=== PATIENT | female | born 1980 | race Two or more races ===

== ENCOUNTER 2024-11-28 16:53 | Inpatient (IN) | payer MEDICAID, SELFPAY ==
[2024-11-28] VITALS (15 sets, daily range): BP systolic 79–120; BP diastolic 56–65; PULSE 62–95; RESP 14–24; TEMP 36.8; O2SAT 72–93
--- NOTE | 2024-11-28 17:34 | EKG_ITS ---
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
--- NOTE | 2024-11-28 17:38 | PD.EDSOB ---
ED SOB =RME/HPI General Chief Complaint: Shortness of Breath/Dyspnea Stated Complaint: SHORTNESS OF BREATH Time Seen by Provider: 11/28/24 17:30 Arrival date/time: 11/28/24 16:53 RME / HPI RME / HPI Narrative: 44-year-old female patient with significant history of congenital heart disease,/intracardiac shunting, Down syndrome, was brought in by EMS for evaluation regarding shortness of breath. Patient has been having worsening cough, shortness of breath since yesterday, + fevers noted. Related Data Home Medications ?Medication ?Instructions ?Recorded ?Confirmed montelukast 10 mg tablet 10 mg ORAL HS ASTHMA ##0 12/14/07 02/04/24 (Singulair) Previous Rx's ?Medication ?Instructions ?Recorded apixaban 5 mg tablet (Eliquis) 5 mg PO BID #60 tabs 02/03/24 acetaminophen 500 mg capsule 1,000 mg (2 x 500 mg) PO Q6H PRN 03/27/24 fever or pain #30 caps Allergies Allergy/AdvReac Type Severity Reaction Status Date / Time Penicillins Allergy Verified 11/28/24 18:00 Review of Systems Review of Systems Narrative Review of Systems: Review of system reviewed and within normal limits except mentioned in HPI ED Exam Narrative Physical exam: VITAL SIGNS: Reviewed. GENERAL APPEARANCE: Alert and interactive, follows commands, no acute distress, Down syndrome HEAD AND FACE: Non-traumatic. ENT: PERRL, pink conjunctivitis, eyelid no trauma, Mucous membrane moist. NECK: Supple, nontender, no nuchal rigidity. CHEST: No tenderness, no crepitus, no paradoxical movement, no retractions. LUNGS: Clear, well ventilated, symmetric, no rales, no wheezing, no ronchi, no stridor, decreased breath sounds bilaterally. HEART: Regular rate, regular rhythm, no murmur, no gallops. ABDOMEN: Soft, positive bowel sounds, nondistended, no guarding, nontender, no rebound, no masses, RECTAL: Deferred. GENITAL: Deferred. NEUROLOGICAL: Gross motor function intact sensory function intact, Appropriate for age. MUSCULOSKELETAL: low back nontender, full range of motion. EXTREMITIES: Nontender, full range of motion. SKIN: Color pink, dry, no rash, no lacerations, no abrasions, no contusions. LYMPHATICS: Deferred. Course Quality Measures none Orders Category Date Time Status Bedside COVID-19 Antigen Test NOW Care 11/28/24 17:34 Active Bedside Influenza A&B Antigen Test NOW Care 11/28/24 17:34 Completed COVID-19 Screening Questionnaire NOW Care 11/28/24 21:14 Active Decision to Admit X1 Care 11/28/24 21:14 Active EKG (ED ONLY) *Do not use* NOW Care 11/28/24 17:34 Completed EKG (ED Only) Stat Exams 11/28/24 17:34 Draft XR chest 1V Stat Exams 11/28/24 18:40 Completed B-Type Natriuretic Peptide Stat Lab 11/28/24 19:30 Completed Blood Culture (Lab) Stat Lab 11/28/24 19:30 Received C-Reactive Protein Stat Lab 11/28/24 19:30 Completed CBC Stat Lab 11/28/24 19:30 Completed Comprehensive Metabolic Panel Stat Lab 11/28/24 19:30 Completed Lactate (Lactic Acid) Stat Lab 11/28/24 19:21 Results Partial Thromboplastin Time Stat Lab 11/28/24 19:30 Completed Procalcitonin Stat Lab 11/28/24 19:30 Completed Prothrombin Time with INR Stat Lab 11/28/24 19:30 Completed Troponin I Stat Lab 11/28/24 19:30 Completed ALBUTEROL RT 0.5ml [Proventil Rt 0.5ml] Med 11/28/24 17:47 Discontinued 2.5 mg INH X1 ONE Albuterol/Ipratr Rt Danica [Duoneb Rt Danica] Med 11/28/24 17:47 Discontinued 3 ml INH X1 ONE Doxycycline Inj [Vibramycin Inj] 100 mg Med 11/28/24 20:30 Active Sodium Chloride 0.9% 250 ml [Ns] 250 ml IV X1 Oseltamivir [Tamiflu] Med 11/28/24 21:10 Discontinued 30 mg PO X1 ONE Sodium Chloride 0.9% 1000 ml [Ns] 1,000 ml Med 11/28/24 20:31 Active IV 999 mls/hr Sodium Chloride Rt Danica 0.9% [NS Rt Danica 0.9%] Med 11/28/24 17:47 Active 3 ml INH PRN PRN cefTRIAXone [Rocephin] 1,000 mg Med 11/28/24 21:14 Active Sodium Chloride 0.9% (P) [Ns 0.9% (P)] 50 ml IV QDAY cefTRIAXone/D5w 1gm IV premix [Rocephin/D5w 1gm IV Med 11/28/24 20:32 Discontinued premix] 50 ml IV X1 Oxygen Delivery NOW RT 11/28/24 21:07 Active Vital Signs Vital signs: Vital Signs Pulse Rate 93 11/28/24 17:52 Respiratory Rate 15 11/28/24 17:52 Pulse Oximetry (%) 75 L 11/28/24 17:52 Oxygen Flow Rate 15 11/28/24 17:52 Shortness of Breath / Dyspnea [facility] Narrative [facility] Narrative:: 44-year-old female patient with significant history of congenital heart disease,/intracardiac shunting, Down syndrome, was brought in by EMS for evaluation regarding shortness of breath. Patient has been having worsening cough, shortness of breath since yesterday, + fevers noted. Patient was placed on high flow right away, currently satting 89% on 30 L. Patient is not tolerating 40 L. Patient tested positive for influenza. Was given 30 mg of Tamiflu due to creatinine that is elevated. Patient was also given IV ceftriaxone and IV doxycycline. Chest x-ray is significant for pneumonia. There is of the labs unremarkable Plan of care discussed with the family and agrees to be admitted Case discussed with hospitalist who admitted the patient. Patient data External records reviewed:: None Clinical information provided by:: family Social determinants that could affect healthcare access:: none Patient has the following chronic illnesses:: Congenital heart disease with intracardiac shunting, pulmonary hypertension Down syndrome How is presenting disease/condition affected by chronic disease/condition?: exacerbated by Evaluation data The following diagnostics were reviewed and interpreted by me:: lab results, radiology exam(s) and EKG tracing(s) Lab and/or radiology exams considered but not ordered:: None Interpretation Summary: EKG showed sinus rhythm, ventricular rate of 83 bpm, no ST segment elevation or depression noted the rest of the imaging and laboratory workup see [facility] Medications / Prescriptions Medications or Prescriptions considered but not ordered:: None Medication administrations:: Medication Administration History Doxycycline Hyclate 100 mg/ (Sodium Chloride) 250 mls @ 125 mls/hr IV X1 ONE Stop: 11/28/24 22:29 Last Admin: 11/28/24 20:44 Dose: 125 mls/hr Documented By: MARIA INES Sodium Chloride (Ns) 1,000 mls @ 999 mls/hr IV .Q1H1M ONE Stop: 11/28/24 21:31 Last Admin: 11/28/24 20:43 Dose: 999 mls/hr Documented By: MARIA INES Ceftriaxone Sodium 1,000 mg/ (Sodium Chloride) 50 mls @ 100 mls/hr IV QDAY ONE Stop: 11/28/24 21:43 Sodium Chloride (Sodium Chloride Rt Danica 0.9% 3 Ml Nebu) 3 ml INH PRN PRN PRN Reason: SOLN Stop: 12/28/24 17:46 Discontinued Medications Albuterol (Albuterol Rt 2.5 Mg/0.5 Ml Nebu) 2.5 mg INH X1 ONE Stop: 11/28/24 17:48 Albuterol/Ipratropium (Albuterol/Ipratropium (Duoneb) Rt Danica 3 Ml Nebu) 3 ml INH X1 ONE Stop: 11/28/24 17:48 Last Admin: 11/28/24 17:50 Dose: 3 ml Documented By: PARUL Ceftriaxone Sodium/Dextrose (Rocephin/D5w 1gm Iv Premix) 50 mls @ 100 mls/hr IV X1 ONE Stop: 11/28/24 21:01 Oseltamivir Phosphate (Oseltamivir 30 Mg Capsule) 30 mg PO X1 ONE Stop: 11/28/24 21:11 Doxycycline IV, Zithromax IV, and IV fluids for hydration. Consultations Consultation(s) initiated? (list below): No Diagnosis Shortness of Breath Differential Diagnosis: congestive heart failure and community acquired pneumonia Most likely diagnosis given after review of the tests above:: Influenza, pneumonia, hypoxia, congenital heart disease with intracardiac shunting Admission Indicated Admission indicated?: indicated Explain why admission is indicated or not indicated:: Patient is to be admitted for further management. Admission Request Was there a request for admission?: Yes Admission Attestation Admission request attestation: Discussed case with Hospitalist service regarding admission. Discussed patients ED course, exam findings, labs, and radiology results. The Hospitalist [agrees,] to accept the patient for admission. Disposition Plan Disposition Plan: Admit Discharge Plan Plan Patient Disposition: Admit Acute Care w/in Hospital Disposition Comment: Stable Prescriptions/Referrals Prescriptions/Med Rec: No Action montelukast [Singulair] 10 MG tablet 10 mg ORAL HS Qty: 0 Patient Comments: TAKE 1 TABLET ORALLY EVERY DAY Eliquis 5 mg tablet 5 mg PO BID Qty: 60 2RF Rx Instructions: Start on 02/06/2024 acetaminophen 500 mg capsule 1,000 mg PO Q6H PRN (Reason: fever or pain) Qty: 30 0RF Problem List Clinical Impression: Pneumonia, Influenza, Congenital heart disease with intracardiac shunting Patient/Caregiver Discharge Instructions Print Language: Turkmen Stand Alone Forms: Irma Award Info., Patient Portal Info Letter
[2024-11-28] MEDS: ALBUTEROL/IPRATROPIUM (Duoneb) RT SOL 3 ML NEBU INH ×2 (17:50→23:20)
--- NOTE | 2024-11-28 18:02 | PC.NURSE ---
PATIENT'S MOTHER JESSICA JACKSON REFUSING HIGH FLOW OXYGEN AND ABG DRAW, RT AND [employer]ER SHAKIREA EXPLAINED IMPROTANCE OF HIGH FLOW OXYGEN, MOTHER CONTINUES TO REFUSE. MOTHER STATES PATIENT IS COMFORT CARE AND DO NOT WANT INTUBATION OR CPR. MOTHER STATES IV, LABS MEDICATIONS, X-RAY ARE OKAY. MOTHER STATES SHE HAS TAKEN CARE OF PATIENT FOR 44 YEARS AND PATIENT'S NORMAL OXYGEN SATURATION LEVEL IS 82-85% ON 10L VIA MASK WITH A MAX OF 12L. MOTHER CONTINUED TO REFUSE HIGH- FLOW AND ABG.
--- NOTE | 2024-11-28 18:15 | PC.NURSE ---
BROTHER SLADE JACKSON AT BEDSIDE AND WAS INFORMED AT PATIENT'S O2 SATURATION IS CURRENTLY 73% ON 10L VIA MASK WITH IS BELOW THE NORMAL STATED BY PATIENT'S MOTHER JESSICA JACKSON. HIGH FLOW WAS EXPLAINED TO FAMILY AGAIN AND FAMILY AGREED TO HIGH FLOW OXYGEN AT THIS TIME. THEY STATED THAT HIGH FLOW OXYGEN IS OKAY UNTIL PATIENT'S OXYGEN LEVEL RETURN TO PATIENT'S NORMAL LEVELS.
--- NOTE | 2024-11-28 18:40 | XR_ITS ---
Examination: AP chest single view Technique one AP portable upright chest single view Exam date and time: November 28, 2024 1837 hrs. Comparison March 27, 2024 Indications: Coughing difficulty breathing today. Findings: Left base retrocardiac pneumonia Mild prominence left ventricle Prominent central pulmonary arteries No pulmonary edema Moderate osteopenia Impression: Left base pneumonia Suspicious for pulmonary artery hypertension
[2024-11-28 19:36] LABS: Lactate (Lactic Acid) 2.2 mMol/L (0.4-2.0)
[2024-11-28 19:58] LABS: Basophils % (Auto) 0 % (0-2.5); Eosinophils % (Auto) 0 % (0-10); Hematocrit 55.4 % (36.0-46.0); Hemoglobin 18.4 g/dL (12.0-16.0); Immature Granulocytes % (Auto) 1 % (0-0); Immature Granulocytes Auto 0.03 Thou/mm3 (0.00-0.00); Lymphocytes # (Auto) 0.7 Thou/mm3 (1.0-4.8); Lymphocytes % (Auto) 15 % (10-50); Mean Corpuscular HGB Conc 33.2 g/dl (31.0-37.0); Mean Corpuscular Hemoglobin 26.9 pg (25.0-35.0); Mean Corpuscular Volume 81 fL (80-100); Monocytes # (Auto) 0.8 Thou/mm3 (0.0-0.8); Monocytes % (Auto) 17 % (0-12); Neutrophils # (Auto) 3.1 Thou/mm3 (1.8-7.7); Neutrophils % (Auto) 68 % (37-80); Nucleated Red Blood Cell % 0 /100 WBC (0); RDW Standard Deviation 51.8 fL (36.4-46.3); Red Blood Count 6.83 Miln/mm3 (4.00-5.20); White Blood Count 4.6 Thou/mm3 (3.6-11.0)
[2024-11-28 20:07] LABS: Platelet Count 53 Thou/mm3 (140-440)
[2024-11-28 20:08] LABS: Slide Review Platelets confirmed
[2024-11-28 20:10] LABS: INR 1.4 (0.9-1.3); Prothrombin Time 14.8 Seconds (9.0-12.2)
--- NOTE | 2024-11-28 20:33 | PC.NURSE ---
BP systolic 85. provider aware. fluids ordered.
[2024-11-28 20:34] LABS: Alanine Aminotransferase 11 U/L (10-49); Albumin, Serum 3.7 gm/dL (3.5-5.0); Albumin/Globulin Ratio 1.1 (1.2-2.2); Alkaline Phosphatase 108 U/L (46-116); Anion Gap 13 (7-16); Aspartate Amino Transferase 32 U/L (0-34); BUN/Creatinine Ratio 12 Ratio (12-20); Bilirubin,Total 0.3 mg/dL (0.3-1.2); Blood Urea Nitrogen 19 mg/dL (9-23); Calcium 9.3 mg/dL (8.3-10.6); Calcium (Corrected) 9.5 mg/dL (8.5-10.1); Carbon Dioxide 19.8 mMol/L (20.0-31.0); Chloride 111 mMol/L (98-107); Creatinine (Component) 1.6 mg/dL (0.6-1.3); Globulin 3.5 gm/dL (2.3-3.5); Glucose 100 mg/dL (74-106); Osmolality,Calculated 289 (275-295); Potassium 4.2 mMol/L (3.4-5.1); Procalcitonin 0.18 ng/ml (0.0-0.49); Sodium 144 mMol/L (136-145); Total Protein 7.2 gm/dL (5.7-8.2); Troponin I < 0.020 ng/mL (0.0-0.045); eGFR 41 See Note
[2024-11-28] MEDS: SODIUM CHLORIDE 0.9% 1000 ML 1,000 ML 999 ML IV (20:43)
[2024-11-28] MEDS: DOXYCYCLINE INJ 100 MG in SODIUM CHLORIDE 0.9% 250 ML 250 ML 125 MG IV (20:44)
[2024-11-28 21:03] LABS: B-Type Natriuretic Peptide 23 pg/mL (0-100)
[2024-11-28 21:13] LABS: C-Reactive Protein 7.1 mg/dL (0.0-0.9)
--- NOTE | 2024-11-28 22:13 | PD.RESHP ---
Documentation for date of: 11/28/24 HPI History of Present Illness Chief complaint: Cough, Shortness of Breath History of present illness: Ms. Silva is a 44-year-old female with past medical history of Down syndrome, congenital heart disease with murmur and 2 defects, status post surgical repair of 1 defect at age 10, seasonal allergies, asthma, hypothyroidism and chronic hypoxemia with baseline home oxygen O2 requirement of 5 L via nasal cannula, patient SpO2 85-89 at baseline who presented to [facility] emergency department on 11/28/2024 with a chief complaint of cough and shortness of breath since yesterday. Patient's mother at bedside provided most of the history, per family patient symptoms started yesterday reported increased cough, shortness of breath with increased oxygen requirement and fever since yesterday. Reported the cough to be nonproductive, with minimal sputum production and elevated temperature doctor at home so she decided to bring patient to the emergency department for further evaluation. In the ED patient was found to be positive for influenza A, also suspicion of left base pneumonia on chest x-ray with increased oxygen requirement from baseline, currently patient saturating 90s on high flow nasal cannula. Patient is alert and oriented, engages in conversation, there is generalized abdominal tenderness on examination, complains of constipation. Otherwise patient has no other complaints. ED Course: ED Vitals: On presentation in ED BP 89/56, P93, RR 15, temp 98.3, O2 sat 75 on oxy mask 15 L ED Labs: In ED labs significant for RBC 6.83, hemoglobin 18.4, hematocrit 55.4, platelet 53,000, PT 14.8, INR 1.4, APTT 45, chloride 111, venous CO2 19.8, creatinine 1.6, GFR 41, lactate 2.2 CRP 7.1 ED Imaging:EKG shows sinus rhythm, QTc 444 and chest x-ray shows left base pneumonia, suspicion of pulmonary artery hypertension ED Treatment:Patient was given DuoNeb breathing treatment, 1 L NS bolus, doxycycline and ceftriaxone x 1 in ED Review of Systems Review of Systems Narrative Review of Systems: ROS: -CONSTITUTIONAL: Denies weight loss, positive for fever and chills. -HEENT: Denies changes in vision and hearing. -RESPIRATORY: Positive for SOB and cough. -CV: Denies palpitations and Chest Pain. -GI: Denies abdominal pain, nausea, vomiting and diarrhea. Positive for constipation. -: Denies dysuria and urinary frequency. -MSK: Denies myalgia and joint pain. -SKIN: Denies rash and pruritus. -NEUROLOGICAL: Denies headache and syncope. -PSYCHIATRIC: Denies recent changes in mood. Denies anxiety and depression. Past Medical History Past Medical History Comments PMH COMMENT: PMH: Positive for Down syndrome, congenital heart disease with murmur and 2 defects, status post surgical repair of 1 defect at age 10, seasonal allergies, asthma, hypothyroidism and chronic hypoxemia with baseline home oxygen O2 requirement of 5 L via nasal cannula, patient SpO2 85-89 at baseline PSHx: Surgical repair of cardiac defect due to congenital heart disease Allergies: Penicillin (skin lesions at fingertips) Social history: -Smoking: Denies -Alcohol Use: Denies -Illicit Drug Use: Denies Family History: No pertinent family history Exam Vital Signs Temp Pulse Resp BP Pulse Ox O2 Del Method O2 Flow Rate 98.3 F 65 24 H 98/61 92 L High Flow Nasal Cannula 30 11/28/24 18:08 11/28/24 21:23 11/28/24 21:23 11/28/24 21:23 11/28/24 21:23 11/28/24 21:23 11/28/24 21:23 FiO2 100 11/28/24 21:23 Narrative Exam Physical Exam General: Awake and in no acute distress. Conversational and non-toxic appearing. HEENT: Down's facies noted, atraumatic, mucous membranes dry, cracked lips noted. Heart: Regular rate and rhythm, systolic murmur appreciated. Lungs: Coarse crackles heard bilaterally, no wheezing. Abdomen: Soft, nondistended, generalized tenderness noted, positive bowel sounds. ?No guarding or rebound tenderness. Neurologic: Alert and oriented x3, no gross neurological deficit, and patient able to move all 4 extremities. Extremities: No edema. Skin: Petechia noted all over skin, on chest, face and legs Results: Labs 11/29/24 04:15 11/29/24 04:15 Labs: Short CBC 11/28/24 Range/Units 19:30 WBC 4.6 (3.6-11.0) Thou/mm3 Hgb 18.4 H (12.0-16.0) g/dL Hct 55.4 H (36.0-46.0) % Plt Count 53 L (140-440) Thou/mm3 BMP 11/28/24 19:30 Sodium 144 Potassium 4.2 Chloride 111 H Carbon Dioxide 19.8 L BUN 19 Creatinine 1.6 H Glucose 100 Calcium 9.3 Cardiac Enzymes 11/28/24 Range/Units 19:30 Troponin I < 0.020 (0.0-0.045) ng/mL Liver Function 11/28/24 Range/Units 19:30 Total Bilirubin 0.3 (0.3-1.2) mg/dL AST 32 (0-34) U/L ALT 11 (10-49) U/L Alkaline Phosphatase 108 (46-116) U/L Albumin 3.7 (3.5-5.0) gm/dL Quality Measures Quality Measures none Medications Home Medications and Allergies Home Medications ?Medication ?Instructions ?Recorded ?Confirmed ?Type montelukast 10 mg tablet 10 mg ORAL HS ASTHMA ##0 12/14/07 02/04/24 History (Singulair) Allergies Allergy/AdvReac Type Severity Reaction Status Date / Time Penicillins Allergy Verified 11/28/24 18:00 Visit Medications Acetaminophen (Acetaminophen 325 Mg Tablet) 650 mg PO Q6H PRN PRN Reason: Mild Pain (1-3 & Fever >101.5 Stop: 12/28/24 21:49 Acetylcysteine (Acetylcysteine Rt Danica 10% 4 Ml Nebu) 4 ml INH Q4HRRT PRN PRN Reason: COUGH OR CONGESTION Stop: 12/28/24 22:59 Albuterol/Ipratropium (Albuterol/Ipratropium (Duoneb) Rt Danica 3 Ml Nebu) 3 ml INH Q4HRRT [facility] Stop: 12/28/24 22:59 Apixaban (Apixaban 2.5 Mg Tablet) 5 mg PO BID [facility] Stop: 12/28/24 22:14 Doxycycline Hyclate 100 mg/ (Sodium Chloride) 250 mls @ 125 mls/hr IV X1 ONE Stop: 11/28/24 22:29 Last Admin: 11/28/24 20:44 Dose: 125 mls/hr Lactated Ringer's (Lactated Ringers) 1,000 mls @ 70 mls/hr IV .[id number] [facility] Stop: 11/29/24 12:17 Ceftriaxone Sodium/Dextrose (Rocephin/D5w 1gm Iv Premix) 50 mls @ 100 mls/hr IV QDAY [facility] Stop: 12/05/24 21:53 Doxycycline Hyclate 100 mg/ (Sodium Chloride) 100 mls @ 100 mls/hr IV BID [facility] Stop: 12/06/24 08:59 Levothyroxine Sodium (Levothyroxine Sodium 25 Mcg Tablet) 50 mcg PO ACBR [facility] Stop: 12/29/24 05:59 Montelukast Sodium (Montelukast Sodium 10 Mg Tablet) 10 mg PO HS [facility] Stop: 12/29/24 20:59 Ondansetron HCl (Ondansetron Inj 2 Mg/Ml Inj 2 Ml) 4 mg IV Q6H PRN; Protocol PRN Reason: NAUSEA OR VOMITING Stop: 12/28/24 21:49 Oseltamivir Phosphate (Oseltamivir 75 Mg Capsule) 75 mg PO BID [facility] Stop: 12/03/24 21:59 Sennosides (Senna Tablet) 2 tab PO HS [facility]; Protocol Stop: 12/29/24 20:59 Sennosides (Senna Tablet) 1 tab PO X1 ONE; Protocol Stop: 11/28/24 22:11 Sodium Chloride (Sodium Chloride Rt Danica 0.9% 3 Ml Nebu) 3 ml INH PRN PRN PRN Reason: SOLN Stop: 12/28/24 17:46 Discontinued Medications Acetylcysteine (Acetylcysteine Rt Danica 10% 4 Ml Nebu) 4 ml INH Q4HRRT [facility] Stop: 12/28/24 22:59 Albuterol (Albuterol Rt 2.5 Mg/0.5 Ml Nebu) 2.5 mg INH X1 ONE Stop: 11/28/24 17:48 Albuterol/Ipratropium (Albuterol/Ipratropium (Duoneb) Rt Danica 3 Ml Nebu) 3 ml INH X1 ONE Stop: 11/28/24 17:48 Last Admin: 11/28/24 17:50 Dose: 3 ml Sodium Chloride (Ns) 1,000 mls @ 999 mls/hr IV .Q1H1M ONE Stop: 11/28/24 21:31 Last Admin: 11/28/24 20:43 Dose: 999 mls/hr Ceftriaxone Sodium/Dextrose (Rocephin/D5w 1gm Iv Premix) 50 mls @ 100 mls/hr IV X1 ONE Stop: 11/28/24 21:01 Ceftriaxone Sodium 1,000 mg/ (Sodium Chloride) 50 mls @ 100 mls/hr IV QDAY ONE Stop: 11/28/24 21:43 Oseltamivir Phosphate (Oseltamivir 30 Mg Capsule) 30 mg PO X1 ONE Stop: 11/28/24 21:11 Sodium Chloride (Sodium Chloride Rt 10% 15 Ml Nebu) 5 ml INH X1 ONE Stop: 11/28/24 21:51 Assessment & Plan Plan Assessment and Plan: Summary: Ms. Silva is a 44-year-old female with past medical history of Down syndrome, congenital heart disease with murmur and 2 defects, status post surgical repair of 1 defect at age 10, seasonal allergies, asthma, hypothyroidism and chronic hypoxemia with baseline home oxygen O2 requirement of 5 L via nasal cannula, patient SpO2 85-89 at baseline who presented to [facility] emergency department on 11/28/2024 with a chief complaint of cough and shortness of breath since yesterday. Patient admitted for further management of acute on chronic hypoxic respiratory failure secondary to influenza A and pneumonia. # Acute on chronic hypoxic respiratory failure # Left lung basilar pneumonia, community-acquired # Influenza A+ # Asthma by history # Lactic acidosis Patient complained of recent cough, shortness of breath, fever and chills since yesterday, had increased oxygen requirement at home, patient has congenital heart disease and is chronically hypoxemic, maintains SpO2 85-89 at baseline at home per mother, does also have history of asthma, reports taking montelukast daily and using levalbuterol inhaler as needed for allergies and asthma. In ED patient SpO2 75 on 15 L via oxy mask on presentation, bedside influenza A positive in ED, chest x-ray significant for suspected left base pneumonia. Coarse crackles heard bilaterally on exam. Has increased oxygen requirement, requiring high flow nasal cannula 30 L, SpO2 in low 90s Patient was given 1 L NS bolus, breathing treatment x 1, ceftriaxone and doxycycline IV in ED. Plan: -Continue ceftriaxone and doxycycline (11/28- -started on Tamiflu 30 mg twice daily (11/28- -DuoNeb every 4 hours, Mucomyst as needed every 4 hours -Guaifenesin as needed for cough -Follow sputum culture, blood culture -Follow lactate -Follow MRSA nasal screen -Supplemental oxygen as needed, goal SpO2 88-90 #Acute kidney injury Patient's baseline GFR Baseline BUN 14, creatinine 1.0, GFR more than 60. On presentation BUN 19, creatinine 1.6, GFR 41 Plan: -Patient was given 1 L bolus in ED, started on maintenance fluid LR 1 L -Avoid nephrotoxic agents -Renally dose medication -Follow renal panel in a.m. #Polycythemia Patient has history of polycythemia, hemoglobin 18.4 on admission, patient has chronic hypoxemia, Miky mutation negative per chart review Plan: -Follow CBC in a.m. #Thrombocytopenia #Petechiae Patient's platelets 53,000 on presentation, petechiae noted on skin. Patient is on Eliquis indefinitely per mother by PCP because of polycythemia Plan: -Continue Eliquis 5 mg p.o. twice daily -Follow platelets in a.m. -No signs of active bleeding currently #Constipation Abdominal tenderness noted on exam, per mother patient constipated Plan: -Senna 2 tablets nightly -Consider starting on MiraLAX in a.m. #Hypothyroidism by history Patient on levothyroxine 50 mcg at home Plan: -Continue home dose levothyroxine -Follow TSH in a.m. #Congenital heart disease #Down syndrome Echo from 2023 shows: Ventricular septal defect ( > 1 cm, infundibular / membranous) with overriding aorta noted with blood flow from the right ventricle into the aorta. Enlarged RV with right ventricular hypertrophy noted. Right ventricular free wall is 0.8-0.9 cm. Echo appears classic for Tetralogy of Fallot but pulmonary stenosis not identified. Small LV with normal LV function at 55 to 60%. Mildly dilated RV with normal function and RV hypertrophy, mild TR. Dilated RA. Trace MR and PI. Aortic regurgitation not evaluated. DVT prophylaxis: Eliquis GI prophylaxis: Not indicated Diet: Regular Lines: Peripheral IV Code status: DNR/DNI Case discussed with Attending Dr. Garcia. Rohan Ozuna PGY1 Disclaimer: This note was dictated by speech recognition. Minor errors in digital media strategist may be present due to voice recognition software. Attending Provider Attestation/Addendum 44-year-old female with Down syndrome, congenital heart defect/VSD status postrepair, hypothyroidism, chronic hypoxic respiratory failure with secondary polycythemia was admitted for influenza A pneumonia. Patient has acute respiratory failure, CHAKA possible early sepsis. Patient was started on IV Rocephin and doxycycline. She was given Tamiflu.
[2024-11-28] MEDS: cefTRIAXone 1,000 MG in SODIUM CHLORIDE 0.9% (P) 50 ML 100 MG IV (22:29)
[2024-11-28 22:45] LABS: Reflex Lactate? Y
[2024-11-28] MEDS: RINGERS LACTATED 1000 ML 1,000 ML 70 ML IV (23:10)
[2024-11-28] MEDS: SODIUM CHLORIDE RT 10% 15 ML NEBU 5 ML INH (23:19)
[2024-11-28] MEDS: APIXABAN 2.5 MG TABLET 5 MG PO (23:57)
[2024-11-28] MEDS: OSELTAMIVIR 30 MG CAPSULE PO (23:58)
[2024-11-29] VITALS (17 sets, daily range): BP systolic 90–152; BP diastolic 54–86; PULSE 0–92; RESP 12–26; TEMP 36.2–37.5; O2SAT 77–98
[2024-11-29 00:37] LABS: Procalcitonin 0.14 ng/ml (0.0-0.49)
[2024-11-29] MEDS: ALBUTEROL/IPRATROPIUM (Duoneb) RT SOL 3 ML NEBU INH ×6 (02:00→23:01)
[2024-11-29 03:26] LABS: Respiratory Syncytial Virus Ag Negative (Negative)
[2024-11-29 03:47] LABS: Collection Type, Urine Clean Catch; RBC,Urine 0 /hpf (0-3); Squamous Epithelial Cell,Urine 0 /hpf (0-5); WBC,Urine 0 /hpf (0-5)
[2024-11-29 04:07] LABS: Bilirubin,Urine Negative (Negative); Blood,Urine Negative (Negative); Clarity,Urine Clear (Clear/Hazy); Color,Urine Lt-Yellow (Lt Yel-Yel); Glucose, Urine Negative (Negative); Ketones,Urine Negative (Negative); Leukocyte Esterase,Urine Negative (Negative); Nitrite,Urine Negative (Negative); Protein,Urine Negative (Neg - Trace); Specific Gravity,Urine 1.012 (1.001-1.035); Urobilinogen,Urine Negative mg/dL (0.0-1.0)
[2024-11-29 04:28] LABS: Basophils % (Auto) 1 % (0-2.5); Eosinophils % (Auto) 0 % (0-10); Hematocrit 52.6 % (36.0-46.0); Hemoglobin 17.4 g/dL (12.0-16.0); Immature Granulocytes % (Auto) 1 % (0-0); Immature Granulocytes Auto 0.02 Thou/mm3 (0.00-0.00); Lymphocytes # (Auto) 0.7 Thou/mm3 (1.0-4.8); Lymphocytes % (Auto) 19 % (10-50); Mean Corpuscular HGB Conc 33.1 g/dl (31.0-37.0); Mean Corpuscular Hemoglobin 27.1 pg (25.0-35.0); Mean Corpuscular Volume 82 fL (80-100); Monocytes # (Auto) 0.6 Thou/mm3 (0.0-0.8); Monocytes % (Auto) 17 % (0-12); Neutrophils # (Auto) 2.3 Thou/mm3 (1.8-7.7); Neutrophils % (Auto) 63 % (37-80); Nucleated Red Blood Cell % 0 /100 WBC (0); RDW Standard Deviation 53.9 fL (36.4-46.3); Red Blood Count 6.41 Miln/mm3 (4.00-5.20); White Blood Count 3.6 Thou/mm3 (3.6-11.0)
[2024-11-29 04:37] LABS: INR 1.4 (0.9-1.3); Partial Thromboplastin Time 48.1 Seconds (22.0-36.0); Prothrombin Time 15.3 Seconds (9.0-12.2)
[2024-11-29 04:39] LABS: Platelet Count 55 Thou/mm3 (140-440); Slide Review Platelets confirmed
[2024-11-29 04:51] LABS: Alanine Aminotransferase 8 U/L (10-49); Albumin, Serum 3.3 gm/dL (3.5-5.0); Albumin/Globulin Ratio 1.1 (1.2-2.2); Alkaline Phosphatase 96 U/L (46-116); Anion Gap 9 (7-16); Aspartate Amino Transferase 25 U/L (0-34); BUN/Creatinine Ratio 15 Ratio (12-20); Bilirubin,Total 0.2 mg/dL (0.3-1.2); Blood Urea Nitrogen 19 mg/dL (9-23); Calcium 8.4 mg/dL (8.3-10.6); Carbon Dioxide 22.7 mMol/L (20.0-31.0); Cardiac Risk Estimate 3.1 RATIO (3.7-5.6); Chloride 113 mMol/L (98-107); Cholesterol 118 mg/dL (132-200); Creatinine (Component) 1.3 mg/dL (0.6-1.3); Globulin 2.9 gm/dL (2.3-3.5); Glucose 87 mg/dL (74-106); HDL Cholesterol 38 mg/dL (40-60); LDL Cholesterol,Calculated 68 mg/dL (0-130); Magnesium 1.4 mg/dL (1.6-2.6); Osmolality,Calculated 289 (275-295); Phosphorous 4.3 mg/dL (2.4-5.1); Potassium 4.3 mMol/L (3.4-5.1); Sodium 145 mMol/L (136-145); Thyroid Stimulating Hormone 13.11 uIU/mL (0.55-4.78); Total Protein 6.2 gm/dL (5.7-8.2); Triglycerides 59 mg/dL (30-150); eGFR 52 See Note
[2024-11-29 04:53] LABS: Glucose Estimated Average 108 mg/dL (80-131); Hemoglobin A1C 5.4 % Hgb (4.8-6.0)
--- NOTE | 2024-11-29 05:42 | PC.NURSE ---
Report called to floor RN. Pt taken to 370 by RN and RT.
[2024-11-29] MEDS: guaiFENesin SYRUP 200 MG/10 ML UDC 100 MG PO (05:57)
[2024-11-29] MEDS: LEVOTHYROXINE SODIUM 25 MCG TABLET 50 MCG PO (05:58)
[2024-11-29 06:16] LABS: Free T4 (Free Thyroxine) 1.03 ng/dL (0.89-1.76)
[2024-11-29] MEDS: SENNA TABLET 1 TAB PO (06:20)
[2024-11-29] MEDS: APIXABAN 2.5 MG TABLET 5 MG PO ×2 (09:27→21:31)
[2024-11-29] MEDS: OSELTAMIVIR 30 MG CAPSULE PO ×2 (09:28→21:31)
[2024-11-29] MEDS: Magnesium Sulfate 2 GM Ivpb 2 GM/50 ML BAG IV (09:28)
[2024-11-29] MEDS: DOXYCYCLINE INJ 100 MG in SODIUM CHLORIDE 0.9% (P) 100 ML IV ×2 (09:28→21:33)
[2024-11-29 09:31] LABS: LDH (Lactate Dehydrogenase) 174 U/L (120-246)
[2024-11-29 09:34] LABS: D-Dimer < 250 ng/mL (<600)
[2024-11-29 09:48] LABS: Fibrinogen 337 mg/dL (175-375)
[2024-11-29 10:15] LABS: Path Review Blood Smear Sent to Pathologist
--- NOTE | 2024-11-29 13:13 | ESPR_ITS ---
<Statement entered by Linh Pascual MD - 11/29/24 16:03> Patient seen at bedside, family at bedside. On HFNC 16L and 100%FIO2. Peripheral and perioral cyanosis noted. Whenever patient talks, her SpO2 decreases to the low 80s. Per family, patient's baseline home O2 is 85-89% and anything higher the patient cannot tolerate. Will continue IV antibiotics (rocephin, doxy, tamiflu) and follow up on cultures. 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 Thrombocytopenia also noted. Will get peripheral blood smear and hematologic workup. Linh Pascual MD PGY-3 Documentation for date of: 11/29/24 Subjective Subjective Interval history: Patient was seen at bedside this morning. No overnight events. Patient's mother was at bedside this morning as well as patient's father and both stated that the patient was on 8 L of O2 at home and that even with this she normally saturates between 85 to max 89%. Patient's family also wanted to keep the patient saturating around this as attempts to increase her oxygen saturation would not require increasing the pressure on the high flow nasal cannula which causes more discomfort for the patient with nosebleeds. Will continue the patient on high flow nasal cannula for now and will change to arrange for desired SpO2 to 85 to 89% as per wishes by the family. Exam Vital Signs Temp Pulse Resp BP Pulse Ox O2 Del Method O2 Flow Rate 97.2 F 69 22 H 136/84 H 89 L High Flow Nasal Cannula 17 11/29/24 08:00 11/29/24 10:50 11/29/24 10:50 11/29/24 08:00 11/29/24 10:50 11/29/24 08:00 11/29/24 10:50 FiO2 100 11/29/24 10:50 Narrative Exam General: A/O x1, no acute distress, on HFNC Eyes: PERRL, EOMI. Anicteric, vision grossly intact. Ears: no ear discharge, Hearing grossly intact. Nose: No nasal discharge. Mouth/Throat: Dry mucous membranes, no redness, no lesions. Neck: Neck supple, non-tender, no cervical lymphadenopathy. Lungs: Coarse crackles still present, No accessory muscle use. Cardio: Normal S1/S2, regular rhythm, systolic murmur, no JVD. Abdomen: Soft, non-tender, no palpable masses, peristalsis present, no guarding or rebound. Extremities: Symmetrical, no significant deformities, no peripheral edema , non-tender, peripheral pulses presents. Skin: Petechiae in LAILA LE and throughout upper chest wall, no lesions, warm to touch. Neuro: difficult to assess due to patient's medical condition, able to move all extremities and able to follow simple commands Objective Labs 11/29/24 04:15 11/29/24 04:15 Labs: Laboratory Results - last 24 hr 11/28/24 11/28/24 11/28/24 19:21 19:30 23:28 WBC 4.6 RBC 6.83 H Hgb 18.4 H Hct 55.4 H MCV 81 MCH 26.9 MCHC 33.2 RDW Std Deviation 51.8 H Plt Count 53 L Neut % (Auto) 68 Lymph % (Auto) 15 [place] % (Auto) 17 H Eos % (Auto) 0 Baso % (Auto) 0 Neut # (Auto) 3.1 Lymph # (Auto) 0.7 L [place] # (Auto) 0.8 Eos # (Auto) 0.0 Baso # (Auto) 0.0 Immature Gran # (Auto) 0.03 H Absolute Nucleated RBC 0.00 Immature Gran % 1 H Nucleated RBC % 0 Smear Path Review PT 14.8 H INR 1.4 H APTT 45.0 H Fibrinogen D-Dimer Sodium 144 Potassium 4.2 Chloride 111 H Carbon Dioxide 19.8 L Anion Gap 13 BUN 19 Creatinine 1.6 H Estim Creat Clear Calc Not Performed. eGFR 41 L BUN/Creatinine Ratio [address] Glu mg/dL Hemoglobin A1c Calculated Osmolality 289 Lactic Acid 2.2 H 2.0 Calcium 9.3 Corrected Calcium 9.5 Phosphorus Magnesium Total Bilirubin 0.3 AST 32 ALT 11 Alkaline Phosphatase 108 Lactate Dehydrogenase Troponin I < 0.020 C-Reactive Prot, Quant 7.1 H B-Natriuretic Peptide 23 Total Protein 7.2 Albumin 3.7 Globulin 3.5 Albumin/Globulin Ratio 1.1 L Triglycerides Cholesterol LDL Cholesterol, Calc HDL Cholesterol Cholesterol/HDL Ratio Procalcitonin 0.18 0.14 TSH Free T4 Ur Collection Type Urine Color Urine Clarity Urine pH Ur Specific [place] Urine Protein Urine Glucose (UA) Urine Ketones Urine Blood Urine Nitrite Urine Bilirubin Urine Urobilinogen (Auto) Ur Leukocyte Esterase Urine RBC Urine WBC Ur Squamous Epith Cells Urine Bacteria RSV Rapid Misc Test Result Platelets confirmed 11/29/24 11/29/24 11/29/24 02:20 03:25 04:15 WBC 3.6 RBC 6.41 H Hgb 17.4 H Hct 52.6 H MCV 82 MCH 27.1 MCHC 33.1 RDW Std Deviation 53.9 H Plt Count 55 L Neut % (Auto) 63 Lymph % (Auto) 19 [place] % (Auto) 17 H Eos % (Auto) 0 Baso % (Auto) 1 Neut # (Auto) 2.3 Lymph # (Auto) 0.7 L [place] # (Auto) 0.6 Eos # (Auto) 0.0 Baso # (Auto) 0.0 Immature Gran # (Auto) 0.02 H Absolute Nucleated RBC 0.00 Immature Gran % 1 H Nucleated RBC % 0 Smear Path Review Sent to Pathologist PT INR APTT Fibrinogen D-Dimer Sodium Potassium Chloride Carbon Dioxide Anion Gap BUN Creatinine Estim Creat Clear Calc eGFR BUN/Creatinine Ratio Glucose Estimated Ave Glu mg/dL Hemoglobin A1c Calculated Osmolality Lactic Acid Calcium Corrected Calcium Phosphorus Magnesium Total Bilirubin AST ALT Alkaline Phosphatase Lactate Dehydrogenase Troponin I C-Reactive Prot, Quant B-Natriuretic Peptide Total Protein Albumin Globulin Albumin/Globulin Ratio Triglycerides Cholesterol LDL Cholesterol, Calc HDL Cholesterol Cholesterol/HDL Ratio Procalcitonin TSH Free T4 Ur Collection Type Clean Catch Urine Color Lt-Yellow Urine Clarity Clear Urine pH 6.0 Ur Specific [place] 1.012 Urine Protein Negative Urine Glucose (UA) Negative Urine Ketones Negative Urine Blood Negative Urine Nitrite Negative Urine Bilirubin Negative Urine Urobilinogen (Auto) Negative Ur Leukocyte Esterase Negative Urine RBC 0 Urine WBC 0 Ur Squamous Epith Cells 0 Urine Bacteria None RSV Rapid Negative Misc Test Result 11/29/24 04:15 WBC RBC Hgb Hct MCV MCH MCHC RDW Std Deviation Plt Count Neut % (Auto) Lymph % (Auto) [place] % (Auto) Eos % (Auto) Baso % (Auto) Neut # (Auto) Lymph # (Auto) [place] # (Auto) Eos # (Auto) Baso # (Auto) Immature Gran # (Auto) Absolute Nucleated RBC Immature Gran % Nucleated RBC % Smear Path Review Cancelled PT 15.3 H INR 1.4 H APTT 48.1 H Fibrinogen 337 D-Dimer < 250 Sodium 145 Potassium 4.3 Chloride 113 H Carbon Dioxide 22.7 Anion Gap 9 BUN 19 Creatinine 1.3 Estim Creat Clear Calc Not Performed. eGFR 52 L BUN/Creatinine Ratio [address] Glu mg/dL 108 Hemoglobin A1c 5.4 Calculated Osmolality 289 Lactic Acid Calcium 8.4 Corrected Calcium 9.0 Phosphorus 4.3 Magnesium 1.4 L Total Bilirubin 0.2 L AST 25 ALT 8 L Alkaline Phosphatase 96 Lactate Dehydrogenase 174 Troponin I C-Reactive Prot, Quant B-Natriuretic Peptide Total Protein 6.2 Albumin 3.3 L Globulin 2.9 Albumin/Globulin Ratio 1.1 L Triglycerides 59 Cholesterol 118 L LDL Cholesterol, Calc 68 HDL Cholesterol 38 L Cholesterol/HDL Ratio 3.1 L Procalcitonin TSH 13.11 H Free T4 1.03 Ur Collection Type Urine Color Urine Clarity Urine pH Ur Specific [place] Urine Protein Urine Glucose (UA) Urine Ketones Urine Blood Urine Nitrite Urine Bilirubin Urine Urobilinogen (Auto) Ur Leukocyte Esterase Urine RBC Urine WBC Ur Squamous Epith Cells Urine Bacteria RSV Rapid Misc Test Result Platelets confirmed Quality Measures Quality Measures none Assessment & Plan Assessment Current Active Medications: Generic Name Dose Route Start Last Admin Trade Name Freq PRN Reason Stop Dose Admin Acetaminophen 650 mg 11/28/24 21:50 Acetaminophen 325 Mg Tablet PO 12/28/24 21:49 Q6H PRN Mild Pain (1-3 & Fever >101.5 Acetylcysteine 4 ml 11/28/24 22:00 Acetylcysteine [place] 10% 4 Ml Nebu INH 12/28/24 22:59 Q4HRRT PRN COUGH OR CONGESTION Albuterol/Ipratropium 3 ml 11/28/24 23:00 11/29/24 07:11 Albuterol/Ipratropium (Duoneb) [place]t [place] 3 Ml Nebu INH 12/28/24 22:59 3 ml Q4HRRT CHLOE Administration Apixaban 5 mg 11/28/24 22:15 11/29/24 09:27 Apixaban 2.5 Mg Tablet PO 12/28/24 22:14 5 mg BID CHLOE Administration Guaifenesin 100 mg 11/28/24 23:44 11/29/24 05:57 Guaifenesin Syrup 200 Mg/10 Ml Udc PO 12/28/24 23:43 100 mg QID PRN Administration COUGH Protocol Doxycycline Hyclate 100 mg/ 100 mls @ 100 mls/hr 11/29/24 09:00 11/29/24 09:28 Sodium Chloride IV 12/06/24 08:59 100 mls/hr BID CHLOE Administration Ceftriaxone Sodium 1,000 mg/ 50 mls @ 100 mls/hr 11/29/24 21:00 Sodium Chloride IV 12/06/24 20:59 QPM CHLOE Levothyroxine Sodium 50 mcg 11/29/24 06:00 11/29/24 05:58 Levothyroxine Sodium 25 Mcg Tablet PO 12/29/24 05:59 50 mcg ACBR CHLOE Administration Montelukast Sodium 10 mg 11/29/24 21:00 Montelukast Sodium 10 Mg Tablet PO 12/29/24 20:59 HS CHLOE Ondansetron HCl 4 mg 11/28/24 21:50 Ondansetron Inj 2 Mg/Ml Inj 2 Ml IV 12/28/24 21:49 Q6H PRN NAUSEA OR VOMITING Protocol Oseltamivir Phosphate 30 mg 11/29/24 09:00 11/29/24 09:28 Oseltamivir 30 Mg Capsule PO 12/03/24 21:59 30 mg BID CHLOE Administration Protocol Sennosides 2 tab 11/29/24 21:00 Senna Tablet PO 12/29/24 20:59 HS CHLOE Protocol Sodium Chloride 3 ml 11/28/24 17:47 Sodium Chloride [place] 0.9% 3 Ml Nebu INH 12/28/24 17:46 PRN PRN SOLN Plan 44-year-old female with past medical history of Down syndrome, congenital heart disease s/p surgical repair at 10 years of age, seasonal allergies, asthma, hypothyroidism, polycythemia, thrombocytopenia, pulmonary embolisms (01/2024), and chronic hypoxia on 8 L of O2 at home was admitted to the hospital on 11/28/2024 due to acute on chronic hypoxic respiratory failure in the setting of community-acquired pneumonia which was flu positive and CHAKA. #Acute on chronic hypoxic respiratory failure likely secondary to #Community-acquired pneumonia #Influenza A+ #Hx of asthma #Lactic acidosis, resolved ? Patient came in initially with complaints of shortness of breath, cough, fevers, and increased oxygen requirements at home. ?On 8 L O2 at home ? Influenza positive on admission ? Chest x-ray that show left pneumonia - SpO2 to 85 to 89% as per wishes by the family Plan: ? Continue with Tamiflu [11/28/2024?] ? Continue Rocephin and doxycycline [11/28/2024?] ? Continue DuoNebs ? Guaifenesin as needed ? Blood cultures pending ? Will continue monitor #CHAKA, improving ? Initially came in with BUN of 19 and creatinine 1.6 ? Baseline BUN 14 and creatinine of 1? BUN 19 and creatinine 1.3 today Plan: ? Avoid nephrotoxic agents ? Renally dose medication ? Will continue to monitor #Hypomagnesemia ? Magnesium 1.4 daily Plan: ? Magnesium 2 g x 1 ? Will continue to replete as necessary #Hx of thrombocytopenia #Hx of polycythemia #Hx of PE ?Will continue with Eliquis for now ? Will continue to monitor closely patient's platelets #Hx of hypothyroidism ? Continue levothyroxine #Down syndrome #Congenital heart disease Disposition: Wean off HFNC, continue Abx and tamiflu. Diet: Regular GI prophylaxis: not indicated DVT prophylaxis: Eliquis Code: DNR Case disclosed with Attending Dr. Forde and My senior Dr. Pascual PGY3. Dragan Fried PGY1 Attending Provider Attestation/Addendum I have discussed and was present for the essential components of the history, physical examination, diagnosis, and treatment plan with the resident. I agree with the patient's care as documented by the resident and amended herein by me. Jack Forde, DO. Patient seen and evaluated this AM. Patient presently on hyponasal cannula, SpO2 87 to 88%, settings 17 L/min at 100% FiO2. The family does not want a higher flow rate for the patient stating that she will get nosebleeds. Patient's family states her SpO2 is anywhere from 85 to 89% at home and that is the direction on where to keep her out which in my opinion is unacceptable but that is what they want us to do at this time. Significant labs included WBC of 3.6, hemoglobin of 17.4 however does have a history of polycythemia, possibly secondary to chronic hypoxia, platelets low at 55 and I did send a peripheral smear to pathology, ordered LDH, ferritin and D-dimer. Will continue ceftriaxone and doxycycline at this time, Tamiflu also on board, renally dosed. Will also follow-up with blood and urine cultures and continue home meds as appropriate. Continue to monitor closely. Patient's father was at bedside, plan explained to him. Although this document has been carefully reviewed, there may still be some phonetic and other typographical errors. These errors are purely grammatical due to imperfections in the software program and should not be construed in any way to compromise the substance of the patient's medical care during this visit.
--- NOTE | 2024-11-29 15:32 | PC.RT ---
INCREASED HFNC TO 25LPM DUE TO MAINTAINING DECREASED SPO2 77%
[2024-11-29] MEDS: SENNA TABLET 2 TAB PO (21:30)
[2024-11-29] MEDS: cefTRIAXone 1,000 MG in SODIUM CHLORIDE 0.9% (P) 50 ML 100 MG IV (21:32)
[2024-11-29] MEDS: MONTELUKAST SODIUM 10 MG TABLET PO (21:33)
[2024-11-30] VITALS (15 sets, daily range): BP systolic 90–116; BP diastolic 54–82; PULSE 70–98; RESP 17–23; TEMP 36.2–37.2; O2SAT 72–90; BMI 29.8
[2024-11-30] MEDS: ALBUTEROL/IPRATROPIUM (Duoneb) RT SOL 3 ML NEBU INH ×6 (02:00→23:51)
[2024-11-30 05:57] LABS: Basophils % (Auto) 1 % (0-2.5); Eosinophils % (Auto) 0 % (0-10); Hemoglobin 17.6 g/dL (12.0-16.0); Immature Granulocytes % (Auto) 0 % (0-0); Immature Granulocytes Auto 0.02 Thou/mm3 (0.00-0.00); Lymphocytes # (Auto) 1.2 Thou/mm3 (1.0-4.8); Lymphocytes % (Auto) 23 % (10-50); Mean Corpuscular HGB Conc 33.2 g/dl (31.0-37.0); Mean Corpuscular Hemoglobin 27.3 pg (25.0-35.0); Mean Corpuscular Volume 82 fL (80-100); Monocytes # (Auto) 0.6 Thou/mm3 (0.0-0.8); Monocytes % (Auto) 12 % (0-12); Neutrophils # (Auto) 3.4 Thou/mm3 (1.8-7.7); Neutrophils % (Auto) 64 % (37-80); Nucleated Red Blood Cell % 0 /100 WBC (0); RDW Standard Deviation 52.4 fL (36.4-46.3); Red Blood Count 6.45 Miln/mm3 (4.00-5.20); White Blood Count 5.3 Thou/mm3 (3.6-11.0)
[2024-11-30] MEDS: LEVOTHYROXINE SODIUM 25 MCG TABLET 50 MCG PO (06:16)
[2024-11-30 06:17] LABS: Platelet Count 67 Thou/mm3 (140-440)
[2024-11-30 06:32] LABS: Slide Review Platelets confirmed
[2024-11-30 06:34] LABS: Alanine Aminotransferase 7 U/L (10-49); Albumin, Serum 3.3 gm/dL (3.5-5.0); Alkaline Phosphatase 97 U/L (46-116); Anion Gap 9 (7-16); Aspartate Amino Transferase 27 U/L (0-34); BUN/Creatinine Ratio 14 Ratio (12-20); Bilirubin,Total 0.2 mg/dL (0.3-1.2); Blood Urea Nitrogen 15 mg/dL (9-23); Calcium (Corrected) 9.6 mg/dL (8.5-10.1); Chloride 112 mMol/L (98-107); Creatinine (Component) 1.1 mg/dL (0.6-1.3); Globulin 3.2 gm/dL (2.3-3.5); Glucose 85 mg/dL (74-106); Magnesium 1.7 mg/dL (1.6-2.6); Osmolality,Calculated 286 (275-295); Phosphorous 2.3 mg/dL (2.4-5.1); Potassium 4.6 mMol/L (3.4-5.1); Sodium 144 mMol/L (136-145); Total Protein 6.5 gm/dL (5.7-8.2); eGFR > 60 See Note
[2024-11-30] MEDS: Magnesium Sulfate 2 GM Ivpb 2 GM/50 ML BAG IV (08:39)
[2024-11-30] MEDS: NAPH,KPH MBDB 1 PACKET (1.5 GM) PO (08:39)
[2024-11-30] MEDS: OSELTAMIVIR 30 MG CAPSULE PO ×2 (08:40→20:08)
[2024-11-30] MEDS: DOXYCYCLINE INJ 100 MG in SODIUM CHLORIDE 0.9% (P) 100 ML IV ×2 (08:40→21:26)
[2024-11-30] MEDS: APIXABAN 2.5 MG TABLET 5 MG PO ×2 (09:11→20:08)
--- NOTE | 2024-11-30 11:21 | PC.NURSE ---
Patient oxygen saturation is dropping to 76% on 35L High Flow called a OCCUPATIONAL THERAPY DIRECTOR at 1121, Dr. Forde,Dr. Lomeli, ICU Charge nurse Nirali and communications tower technician Karma responded to OCCUPATIONAL THERAPY DIRECTOR.
--- NOTE | 2024-11-30 11:24 | XR_ITS ---
Examination: AP chest single view Technique one AP portable semiupright chest single view Exam date and time: November 30, 2024 1136 hrs. Indications: Shortness of breath today. Findings: Mild prominence left ventricle Prominent vascular congestion Early septal edema the lung bases Impression: Mild heart failure
--- NOTE | 2024-11-30 11:33 | ESPR_ITS ---
<Statement entered by Linh Pascual MD - 11/30/24 15:01> I discussed with and supervised my co-resident involved in the care of this patient. I agree with the assessment and plan as documented above. Patient remains hypoxic in the 70s-high 80s despite HFNC, this morning at HFNC 25L at FiO2 100%. Family states patient cannot tolerate SpO2 higher than 89 and do not want labs. Family counselled on importance of safe oxygen saturation. Will try placing patient on Oxymask. Patient is awake, playful, in no acute distress. Will continue IV antibiotics, tamiflu, and follow up cultures. Linh Pascual MD PGY-3 Documentation for date of: 11/30/24 Subjective Subjective Interval history: Patient was seen at bedside this morning. No overnight events. Patient has been having increased oxygen requirements and she was on 25 L at 100% FiO2 on high flow nasal cannula this morning and she was saturating still in the low 80s, but at that they progressed during the noon time she desaturated to the low 70s and a rapid response was called, please see event note attached from today for further details. During the rapid response and even in the morning on initial assessment the mother was at bedside and the father as well it was explained to them thoroughly that it was not safe for her to be saturating so low therefore she needed to be on high levels of oxygen. They were understanding, but was still concerned that this would be uncomfortable for her and would be irritating her. Patient's brother also came in in the afternoon when we spoke with the patient's family about her oxygenation has been too low and as a VBG and to go up on oxygen given that she was cyanotic at this time. They were understanding, but wanted to let us know that they felt uncomfortable given that she would become very irritable on high flow nasal cannula. Patient's family was understanding, but stated that they also wanted to treat the underlying infection but would prefer to stay away from the high flow nasal cannula. It was explained to them that we will transition to OxyMask to the highest oxygen delivery which was 15 L for now. Patient's oxygenation on 15 L by oxy mask remains on the high 70s to low 80s. The patient's family understood that these levels were not safe and were okay with patient being on oxy mask for now and to continue further treatment. It was explained to them that if they were against the patient being on high flow nasal cannula and getting VBG's were ABGs which would be necessary to assess the patient's respiratory status they could decide if they would like to only maintain the patient on OxyMask and continue treatment for influenza at home. They stated that they were okay for now that they would be agreeable to continuing the patient on OxyMask and the need be that she required high flow nasal cannula then they would be okay with this. Exam Vital Signs Temp Pulse Resp BP Pulse Ox O2 Del Method O2 Flow Rate 99 F 77 20 112/82 86 L High Flow Nasal Cannula 11/30/24 08:00 11/30/24 10:43 11/30/24 10:43 11/30/24 08:00 11/30/24 10:43 11/30/24 08:00 11/30/24 10:43 FiO2 100 11/30/24 10:43 Narrative Exam General: A/O x2, no acute distress, on HFNC Eyes: PERRL, EOMI. Anicteric, vision grossly intact. Ears: no ear discharge, Hearing grossly intact. Nose: No nasal discharge. Mouth/Throat: Dry mucous membranes, no redness, no lesions. Neck: Neck supple, non-tender, no cervical lymphadenopathy. Lungs: Coarse crackles still present, No accessory muscle use. Cardio: Normal S1/S2, regular rhythm, systolic murmur, no JVD. Abdomen: Soft, non-tender, no palpable masses, peristalsis present, no guarding or rebound. Extremities: Symmetrical, no significant deformities, no peripheral edema , non-tender, peripheral pulses presents. Skin: Petechiae in LAILA LE and throughout upper chest wall, no lesions, warm to touch. Neuro: difficult to assess due to patient's medical condition, able to move all extremities and able to follow simple commands Objective Labs 11/30/24 04:19 11/30/24 04:19 Labs: Laboratory Results - last 24 hr 11/30/24 04:19 WBC 5.3 D RBC 6.45 H Hgb 17.6 H Hct 53.0 H MCV 82 MCH 27.3 MCHC 33.2 RDW Std Deviation 52.4 H Plt Count 67 L D Neut % (Auto) 64 Lymph % (Auto) 23 [place] % (Auto) 12 Eos % (Auto) 0 Baso % (Auto) 1 Neut # (Auto) 3.4 Lymph # (Auto) 1.2 [place] # (Auto) 0.6 Eos # (Auto) 0.0 Baso # (Auto) 0.0 Immature Gran # (Auto) 0.02 H Absolute Nucleated RBC 0.00 Immature Gran % 0 Nucleated RBC % 0 Sodium 144 Potassium 4.6 Chloride 112 H Carbon Dioxide 23.0 Anion Gap 9 BUN 15 Creatinine 1.1 Estim Creat Clear Calc Not Performed. eGFR > 60 BUN/Creatinine Ratio 14 Glucose 85 Calculated Osmolality 286 Calcium 9.0 Corrected Calcium 9.6 Phosphorus 2.3 L Magnesium 1.7 Total Bilirubin 0.2 L AST 27 ALT 7 L Alkaline Phosphatase 97 Total Protein 6.5 Albumin 3.3 L Globulin 3.2 Albumin/Globulin Ratio 1.0 L Misc Test Result Platelets confirmed Quality Measures Quality Measures none Assessment & Plan Assessment Current Active Medications: Generic Name Dose Route Start Last Admin Trade Name Freq PRN Reason Stop Dose Admin Acetaminophen 650 mg 11/28/24 21:50 Acetaminophen 325 Mg Tablet PO 12/28/24 21:49 Q6H PRN Mild Pain (1-3 & Fever >101.5 Acetylcysteine 4 ml 11/28/24 22:00 Acetylcysteine [place] 10% 4 Ml Nebu INH 12/28/24 22:59 Q4HRRT PRN COUGH OR CONGESTION Albuterol/Ipratropium 3 ml 11/28/24 23:00 11/30/24 10:42 Albuterol/Ipratropium (Duoneb) Rt [place] 3 Ml Nebu INH 12/28/24 22:59 3 ml Q4HRRT CHLOE Administration Apixaban 5 mg 11/28/24 22:15 11/30/24 09:11 Apixaban 2.5 Mg Tablet PO 12/28/24 22:14 5 mg BID CHLOE Administration Guaifenesin 100 mg 11/28/24 23:44 11/29/24 05:57 Guaifenesin Syrup 200 Mg/10 Ml Udc PO 12/28/24 23:43 100 mg QID PRN Administration COUGH Protocol Doxycycline Hyclate 100 mg/ 100 mls @ 100 mls/hr 11/29/24 09:00 11/30/24 08:40 Sodium Chloride IV 12/06/24 08:59 100 mls/hr BID CHLOE Administration Ceftriaxone Sodium 1,000 mg/ 50 mls @ 100 mls/hr 11/29/24 21:00 11/29/24 22:02 Sodium Chloride IV 12/06/24 20:59 Infused QPM CHLOE Infusion Levothyroxine Sodium 50 mcg 11/29/24 06:00 11/30/24 06:16 Levothyroxine Sodium 25 Mcg Tablet PO 12/29/24 05:59 50 mcg ACBR CHLOE Administration Montelukast Sodium 10 mg 11/29/24 21:00 11/29/24 21:33 Montelukast Sodium 10 Mg Tablet PO 12/29/24 20:59 10 mg HS CHLOE Administration Ondansetron HCl 4 mg 11/28/24 21:50 Ondansetron Inj 2 Mg/Ml Inj 2 Ml IV 12/28/24 21:49 Q6H PRN NAUSEA OR VOMITING Protocol Oseltamivir Phosphate 30 mg 11/29/24 09:00 11/30/24 08:40 Oseltamivir 30 Mg Capsule PO 12/03/24 21:59 30 mg BID CHLOE Administration Protocol Sennosides 2 tab 11/29/24 21:00 11/29/24 21:30 Senna Tablet PO 12/29/24 20:59 2 tab HS CHLOE Administration Protocol Sodium Chloride 3 ml 11/28/24 17:47 Sodium Chloride Rt [place] 0.9% 3 Ml Nebu INH 12/28/24 17:46 PRN PRN SOLN Plan 44-year-old female with past medical history of Down syndrome, congenital heart disease s/p surgical repair at 10 years of age, seasonal allergies, asthma, hypothyroidism, polycythemia, thrombocytopenia, pulmonary embolisms (01/2024), and chronic hypoxia on 8 L of O2 at home was admitted to the hospital on 11/28/2024 due to acute on chronic hypoxic respiratory failure in the setting of community-acquired pneumonia which was flu positive and CHAKA. #Acute on chronic hypoxic respiratory failure likely secondary to #Community-acquired pneumonia #Influenza A+ #Hx of asthma #Lactic acidosis, resolved ? Patient came in initially with complaints of shortness of breath, cough, fevers, and increased oxygen requirements at home. ?On 8 L O2 at home ? Influenza positive on admission ? Chest x-ray that show left pneumonia - On oxymask as per wishes by the family Plan: ? Continue with Tamiflu [11/28/2024?] ? Continue Rocephin and doxycycline [11/28/2024?] ? Continue DuoNebs ? Guaifenesin as needed ? Blood cultures pending, negative in 24 hrs ? Will continue monitor #CHAKA, improving ? Initially came in with BUN of 19 and creatinine 1.6 ? Baseline BUN 14 and creatinine of 1 BUN 15 and creatinine 1.1 today Plan: ? Avoid nephrotoxic agents ? Renally dose medication ? Will continue to monitor #Hypomagnesemia ? Magnesium 1.7 today Plan: ? Magnesium 2 g x 1 ? Will continue to replete as necessary #Hx of thrombocytopenia #Hx of polycythemia #Hx of PE ?Will continue with Eliquis for now ? Will continue to monitor closely patient's platelets #Hx of hypothyroidism ? Continue levothyroxine #Down syndrome #Congenital heart disease Disposition: On Oxymask as per patient's family wishes, continue Abx and tamiflu. Diet: Regular GI prophylaxis: not indicated DVT prophylaxis: Eliquis Code: DNR Case disclosed with Attending Dr. Forde and My senior Dr. Pascual PGY3. Dragan Fried PGY1 Attending Provider Attestation/Addendum I have discussed and was present for the essential components of the history, physical examination, diagnosis, and treatment plan with the resident. I agree with the patient's care as documented by the resident and amended herein by me. Jack Forde, . Patient seen and evaluated this AM. No acute events overnight, patient remains on high flow nasal cannula at 25/100 this morning however we did have to uptitrate, SpO2 has been in the low 80s, a rapid response was called as such. Family states that her O2 sats are very low at home and the patient will not tolerate higher flow rates. I did run the case past pulmonology, we will attempt oxy mask 8 L which we tried, the patient's O2 seems to be stable around 80%. Patient is on 8 L O2 at home. Patient is DNR/DNI, will continue antibiotics at this time as well as Tamiflu. Will continue to monitor closely, the patient is in good spirits she is smiling and at her baseline mentation. Although this document has been carefully reviewed, there may still be some phonetic and other typographical errors. These errors are purely grammatical due to imperfections in the software program and should not be construed in any way to compromise the substance of the patient's medical care during this visit.
--- NOTE | 2024-11-30 11:33 | PD.RESEVENT ---
Documentation for date of: 11/30/24 Event Note Event Note: Rapid response was called around 11:20 AM this morning due to patient being hypoxic in the low 70s. Patient was on high flow nasal cannula since the morning, but during the rapid response it was changed from 25 L at 100% FiO2 to 35 L and 100% FiO2 and patient's saturations were still in the low 80s high 70s. Patient's father was at bedside and was explained to them that we needed to get some blood work and a new chest x-ray given her sudden decline in saturation. Ordered chest x-ray and VBG for the patient during the rapid response. Patient was doing well, but there was some cyanosis visible the patient's fingers. Case disclosed with Attending Dr. Maurisio Fried PGY1
[2024-11-30] MEDS: ACETAMINOPHEN 325 MG TABLET 650 MG PO (11:41)
--- NOTE | 2024-11-30 12:30 | PC.NURSE ---
Patient's mother states that this is normal for patient to be in the high 70's, she stated she is upset that patient is on 40L on high flow and is getting poked for vbg draw. I provided education regarding the need of oxygen therapy. notified Dr. Forde of situation.
--- NOTE | 2024-11-30 13:00 | PC.NURSE ---
Dr. Forde and Dr. Lomeli at bedside
[2024-11-30 13:11] LABS: Base Excess, Venous -3 (-3-3); O2 Saturation, Venous 76 % (96-97); PCO2, Venous 36 mmHg (36-56); PO2, Venous 39 mmHg (15-58); pH, Venous 7.39 (7.33-7.66)
--- NOTE | 2024-11-30 15:16 | PC.NURSE ---
PATIENT O2 SATURATION AT 76%, BP 87/41, RR32, HR108, CALLED [employer] WORKER ,,ICU CHARGE NURSE HUBERT, GROUNDHAND BRAD AT BEDSIDE
[2024-11-30] MEDS: SODIUM CHLORIDE 0.9% 1000 ML 1,000 ML 999 ML IV (15:27)
--- NOTE | 2024-11-30 15:30 | PC.NURSE ---
pt O2 at 77% Dr. Lomeli aware
--- NOTE | 2024-11-30 16:17 | PC.SS ---
SS was informed pt family interested in Hospice Services, DEONDRE referral submitted to [facility].
--- NOTE | 2024-11-30 16:19 | PD.RESEVENT ---
Documentation for date of: 11/30/24 Event Note Event Note: Patient had another rapid response called around 3:17 PM today due to hypoxic and, low blood pressure, and tachycardia. Patient still had a MAP above 65 and patient's parents were at bedside. Patient was not having increased work of breathing but she was saturating in the low 70s high 60s. Her O2 meter was changed to her urine and that show improvement in the saturation, but she remained in the high 70s low 80s. Given the patient IV fluids, but these were discontinued shortly after given that there could be worsening hypoxia given her VSD shunt. After a rapid response was finished patient was oxygenating around the low 80s. Spoke with patient's family at bedside about them not wanting to do any aggressive interventions at this time which included possible chest CTA to see if patient developed saddle PE since she became hypoxic tachycardic and her blood pressure dropped. They stated they did not want the chest CTA done as this will require another IV line to be placed on the patient and they do not want any aggressive treatments for now. Explained to them the possibility of hospice as this seems to align with their wishes at this time. Patient's family was very understanding and they stated that this was what they wanted that they think this would be the option that they would like to lean towards at this time. Will refer patient to hospice and will not do any more aggressive medical interventions at this time as per family wishes. Case disclosed with Attending Dr. Maurisio Fried PGY1
[2024-11-30 16:56] LABS: Lactate (Lactic Acid) 1.3 mMol/L (0.4-2.0)
--- NOTE | 2024-11-30 18:39 | PC.NURSE ---
patient had ECHO done at [facility] , info provided by family
[2024-11-30] MEDS: cefTRIAXone 1,000 MG in SODIUM CHLORIDE 0.9% (P) 50 ML 100 MG IV (20:07)
[2024-11-30] MEDS: SENNA TABLET 2 TAB PO (20:08)
[2024-11-30] MEDS: MONTELUKAST SODIUM 10 MG TABLET PO (20:08)
[2024-12-01] VITALS (10 sets, daily range): BP systolic 93–122; BP diastolic 44–80; PULSE 67–107; RESP 16–20; TEMP 36.5–37.2; O2SAT 75–95
[2024-12-01] MEDS: ALBUTEROL/IPRATROPIUM (Duoneb) RT SOL 3 ML NEBU INH ×4 (02:56→14:15)
[2024-12-01] MEDS: LEVOTHYROXINE SODIUM 25 MCG TABLET 50 MCG PO (05:06)
[2024-12-01 05:22] LABS: Basophils % (Auto) 1 % (0-2.5); Eosinophils % (Auto) 0 % (0-10); Hematocrit 52.2 % (36.0-46.0); Immature Granulocytes % (Auto) 1 % (0-0); Immature Granulocytes Auto 0.05 Thou/mm3 (0.00-0.00); Lymphocytes # (Auto) 1.4 Thou/mm3 (1.0-4.8); Lymphocytes % (Auto) 26 % (10-50); Mean Corpuscular HGB Conc 32.6 g/dl (31.0-37.0); Mean Corpuscular Hemoglobin 26.9 pg (25.0-35.0); Mean Corpuscular Volume 83 fL (80-100); Monocytes # (Auto) 0.6 Thou/mm3 (0.0-0.8); Monocytes % (Auto) 10 % (0-12); Neutrophils # (Auto) 3.4 Thou/mm3 (1.8-7.7); Neutrophils % (Auto) 62 % (37-80); Nucleated Red Blood Cell % 0 /100 WBC (0); RDW Standard Deviation 53.3 fL (36.4-46.3); Red Blood Count 6.31 Miln/mm3 (4.00-5.20); White Blood Count 5.5 Thou/mm3 (3.6-11.0)
[2024-12-01 05:32] LABS: Platelet Count 68 Thou/mm3 (140-440)
[2024-12-01 05:57] LABS: Alanine Aminotransferase < 7 U/L (10-49); Albumin, Serum 3.2 gm/dL (3.5-5.0); Alkaline Phosphatase 94 U/L (46-116); Anion Gap 10 (7-16); Aspartate Amino Transferase 23 U/L (0-34); BUN/Creatinine Ratio 14 Ratio (12-20); Bilirubin,Total 0.2 mg/dL (0.3-1.2); Blood Urea Nitrogen 15 mg/dL (9-23); Calcium 8.5 mg/dL (8.3-10.6); Calcium (Corrected) 9.1 mg/dL (8.5-10.1); Carbon Dioxide 23.7 mMol/L (20.0-31.0); Chloride 108 mMol/L (98-107); Creatinine (Component) 1.1 mg/dL (0.6-1.3); Estimated Creatinine Clearance 50.4 mL/min (>60); Globulin 3.1 gm/dL (2.3-3.5); Glucose 98 mg/dL (74-106); Magnesium 1.7 mg/dL (1.6-2.6); Osmolality,Calculated 283 (275-295); Phosphorous 3.5 mg/dL (2.4-5.1); Potassium 4.1 mMol/L (3.4-5.1); Slide Review Platelets confirmed; Sodium 142 mMol/L (136-145); Total Protein 6.3 gm/dL (5.7-8.2); eGFR > 60 See Note
[2024-12-01] MEDS: APIXABAN 2.5 MG TABLET 5 MG PO (09:13)
[2024-12-01] MEDS: OSELTAMIVIR 30 MG CAPSULE PO (09:13)
--- NOTE | 2024-12-01 09:31 | PC.SS ---
Addendum entered by Adia Gifford 12/01/24 13:21: SS follow up note; SS informed patient's mother and patient's nurse Ruma that [facility] will transports patient at 2PM. SS also contacted Allyson from [facility] in regards to ETA. Original Note: Patient Jillian Silva is a 44 year old female admitted for AHRF 11/15.PNA and flu. SS met with Patients Mother, Paulette Silva who reports is her surrogate decision maker [phone]. mother reports patient has Wheelchair, 3 in 1 Commode. SS met with patient's mother at bedside as well as Ashlee from [facility]. Mother reports she needs Hospital bed and 02. Allyson from [facility] informed patiet's mother that agency will have DME delivered in a few hrs. SS set up transportation with [facility] transportation, Reference # [id number].
--- NOTE | 2024-12-01 10:53 | ESDS_ITS ---
<Statement entered by Linh Pascual MD - 12/01/24 16:16> I discussed with and supervised my co-resident involved in the care of this patient. I agree with the assessment and plan as documented above. Patient is a 44 year old female with PMH of Down Syndrome who was admitted for acute on chronic hypoxic respiratory failure due to influenza and pneumonia. Per family, patient has history of congenital heart disease and underwent repair when patient was 10 years old, but family declined second repair. Echo from 01/27/2022 read VSD > 1cm with overriding aorta with blood flow from right ventricle into aorta. Enlarged RV with right ventricular hypertrophy noted. Right ventricular free wall is 0.8-0.9 cm. Echo appears classic for Tetralogy of Fallot but pulmonary stenosis not identified. Small LV with normal LV function at 55 to 60%. 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 She has subsequent chronic hypoxemia with baseline home SpO2 in the 70-80s per family on 8L Oxymask. Due to her chronic hypoxemia, patient likely has secondary polyc ythemia and and subsequent pulmonary embolism in the past, and was put on long- term anticoagulation. Throughout hospital stay, patient was hypoxic with peripheral cyanosis, but was awake, alert, and playful. Because of her [id number] shunt, patient's SpO2 readings did not improve on Oxymask or HFNC. Patient may benefit from specialist services in adult congenital heart disease. However, patient's family did not want to pursue further imaging or labs, or uptitrite the patient's oxygen requirements. It was then felt that hospice would be an appropriate plan that best aligned with the family's wishes, who were agreeable. Patient was ultimately discharged to hospice with Tamiflu and oral antibiotics for her pneumonia. Linh Pascual MD PGY-3 Planned Discharge Date 12/01/24 DS: Providers Provider Date of admission: 11/28/24 21:45 Primary care physician: Magdy Quiroga MD Admitting Provider: Neal Garcia MD Attending Provider on Admission: Neal Garcia MD Consults: 11/30/24 16:08 Referral Hospice Routine Comment: Attending Provider on DC: Kalin Gaines MD Discharging Provider: Kalin Gaines MD DS: Diagnosis Problem List Completed Was Problem List Reviewed/Reconciled?: Yes Hospital Course Hospital Course Hospital course: 44-year-old female with past medical history of Down syndrome, congenital heart disease s/p surgical repair at 10 years of age, seasonal allergies, asthma, hypothyroidism, polycythemia, thrombocytopenia, pulmonary embolisms (01/2024), and chronic hypoxia on 8 L of O2 at home was admitted to the hospital on 11/28/2024 due to acute on chronic hypoxic respiratory failure in the setting of community-acquired pneumonia which was flu positive and CHAKA. Patient came into the ED with complaints of increased oxygen requirements and cough. Initially patient was hypoxic, afebrile, and mildly hypotensive. Initial labs were relevant for erythrocytosis (hemoglobin 19.4), thrombocytopenia (53), high anion gap metabolic acidosis, CHAKA (creatinine 1.6), lactic acidosis (2.2), and elevated CRP (7.1). Initial imaging included chest x-ray which shows some left base pneumonia and suspicion for pulmonary artery hypertension. Patient's blood cultures remain negative throughout the hospital stay and she was treated with ceftriaxone, doxycycline, and Tamiflu pneumonia. Patient's oxygen requirements continued to increase throughout her hospital stay and she was eventually placed on high flow nasal cannula, but the family at this time was against the use of high flow nasal cannula as it made the patient very uncomfortable. Patient had 2 rapid response called due to hypoxia in which the patient dropped to the low 70s, but during this time patient's family was adamant that she was saturating in the low 70s and may be the highest being mid 80s at home. They stated that they did not want any more ABGs or patient being on high flow nasal cannula as it made her very uncomfortable. After the last rapid response was called we spoke with the patient's family about their wishes aligning with hospice at this time given that they did not want any aggressive treatments at this time nor did they want any additional imaging to rule out any bigger pulmonary embolisms. They were understanding and they stated that those were their wishes and that they felt that hospice was the best option as it align with their wishes. At the time of discharge patient was stable enough to be discharged home with hospice. Discharge plan: Continuation of care as per hospice physician Continue Tamiflu for 5 more days and Doxycycline and Levofloxacin for 3 more days. Continue all other home meds as prescribed. Problem list: #Acute on chronic hypoxic respiratory failure likely secondary to #Community-acquired pneumonia #Influenza A+ #Hx of asthma #Lactic acidosis, resolved #CHAKA, resolved #Hypomagnesemia #Hx of thrombocytopenia #Hx of polycythemia #Hx of PE #Hx of hypothyroidism #Down syndrome #Congenital heart disease Case disclosed with Attending Dr. Gaines and My senior Dr. Pascual PGY. Dragan Fried PGY1 Status at Discharge Overall status at discharge: patient is progressing back to baseline Time Spent with Patient Time attestation: Total time spent providing and/or coordinating discharge services:>35 min Exam Vital Signs Temp Pulse Resp BP Pulse Ox O2 Del Method O2 Flow Rate 98.4 F 103 H 17 93/44 L 85 L High Flow Nasal Cannula 5 12/01/24 07:44 12/01/24 08:00 12/01/24 07:44 12/01/24 07:44 12/01/24 07:44 12/01/24 07:44 12/01/24 07:44 FiO2 100 11/30/24 16:00 Narrative Exam General: A/O x2, no acute distress, on HFNC Eyes: PERRL, EOMI. Anicteric, vision grossly intact. Ears: no ear discharge, Hearing grossly intact. Nose: No nasal discharge. Mouth/Throat: Dry mucous membranes, no redness, no lesions. Neck: Neck supple, non-tender, no cervical lymphadenopathy. Lungs: Coarse crackles still present, No accessory muscle use. Cardio: Normal S1/S2, regular rhythm, systolic murmur, no JVD. Abdomen: Soft, non-tender, no palpable masses, peristalsis present, no guarding or rebound. Extremities: Symmetrical, no significant deformities, no peripheral edema , non-tender, peripheral pulses presents. Skin: Petechiae in LAILA LE and throughout upper chest wall, no lesions, warm to touch. cyanosis in LAILA fingers Neuro: difficult to assess due to patient's medical condition, able to move all extremities and able to follow simple commands Discharge Plan Plan Patient Disposition: Home w/HOSPICE Disposition Comment: Stable Care Plan Goals: Continuation of care as per hospice physician Continue Tamiflu for 5 more days and Doxycycline and Levofloxacin for 3 more days. Continue all other home meds as prescribed. Prescriptions/Referrals Prescriptions/Med Rec: New doxycycline hyclate 100 mg capsule 100 mg PO BID 3 Days Qty: 6 0RF levofloxacin 500 mg tablet 500 mg PO QDAY 3 Days Qty: 3 0RF oseltamivir 30 mg capsule 30 mg PO BID 5 Days Qty: 10 0RF Continued montelukast [Singulair] 10 MG tablet 10 mg ORAL HS Qty: 0 Patient Comments: TAKE 1 TABLET ORALLY EVERY DAY Eliquis 5 mg tablet 5 mg PO BID Qty: 60 2RF Rx Instructions: Start on 02/06/2024 levothyroxine 50 mcg tablet 50 mcg PO QDAY Patient Comments: TOME 1 TABLETA POR V A ORAL TODOS LOS D EN LA MA UGO EN ESTOMAGO VACIO albuterol sulfate 2.5 mg /3 mL (0.083 %) solution for nebulization 2.5 mg inhalation Q6H PRN (Reason: shortness of breath or wheezing) Patient Comments: INHALE 1 VIAL VIA NEBULIZER EVERY 6 HOURS NEEDED Discontinued acetaminophen 500 mg capsule 1,000 mg PO Q6H PRN (Reason: fever or pain) Qty: 30 0RF Referrals: Magdy Quiroga MD [Primary Care Provider] - Patient/Caregiver Discharge Instructions Other Discharge Activity Instructions:: Continuation of care as per hospice physician Continue Tamiflu for 5 more days and Doxycycline and Levofloxacin for 3 more days. Continue all other home meds as prescribed. Education Materials: The Flu (Influenza) Print Language: Gibraltarian Stand Alone Forms: [employer] Award Info., Patient Portal Info Letter Discharge Order Discharge Orders: Discharge (Routine); Ordered 12/01/24 Ordered By: Dragan Fried Quality Discharge Quality Measures VTE prophylaxis Attestestation Attestation I reviewed labs, imaging, EKG, home medications and prior available records. Face to face evaluation was performed by me. I have personally examined the patient and discussed assessment and plan with the IM team. I reviewed the resident note and agree with the plan with exceptions as below. Acute on chronic hypoxic respiratory failure Influenza A Down syndrome Community-acquired pneumonia Congenital heart disease Will discharge on p.o. ofloxacin Continue home oxygen at 8 L Discussed goals of care with the family: She will go home with home hospice Time spent is 40 minutes. More than 50% of the time was spent on patient education and coordination of care.
--- NOTE | 2024-12-01 14:10 | PC.SS ---
SS follow up note; SS was contacted by [facility] and reported that ETA was moved to 3PM. SS updated patient's nurse, [facility] and Patient's mother.
== END 2024-12-01 16:09 | disposition hospice, home (50) | DRG 139 ==
LOC: SERX 23:11 → SERHOLD 23:36 → S3SX 11-29 05:21
PROVIDERS: Nurse Practitioner Family; Student in an Organized Health Care Education/Training Program; Admitting Provider Internal Medicine; Emergency Provider Emergency Medicine; PCP Family Medicine; Visit Provider Internal Medicine
DX: J10.00 Influenza due to other identified influenza virus with unspecified type of pneumonia (principal); Q90.9 Down syndrome, unspecified; E03.9 Hypothyroidism, unspecified; K59.00 Constipation, unspecified; J96.21 Acute and chronic respiratory failure with hypoxia; E87.20 Acidosis, unspecified; Q24.9 Congenital malformation of heart, unspecified; J45.909 Unspecified asthma, uncomplicated; N17.9 Acute kidney failure, unspecified; D75.1 Secondary polycythemia; Z79.01 Long term (current) use of anticoagulants; R79.82 Elevated C-reactive protein (CRP); R23.0 Cyanosis; Q21.0 Ventricular septal defect; I27.20 Pulmonary hypertension, unspecified; Q25.49 Other congenital malformations of aorta; D69.6 Thrombocytopenia, unspecified; E83.42 Hypomagnesemia; Z86.711 Personal history of pulmonary embolism; Z66 Do not resuscitate; Z11.52 Encounter for screening for COVID-19; Z79.899 Other long term (current) drug therapy; Z88.0 Allergy status to penicillin
CPT/HCPCS: 36415; 36600; 71045; 80053; 80061; 81001; 82803; 83036; 83605; 83615; 83735; 83880; 84100; 84145; 84439; 84443; 84484; 85025; 85379; 85384; 85610; 85730; 86140; 87040; 87081; 87205; 87400; 87634; 87811; 89220; 93005; 93225; 94640; 94762; 96365; 96366; 99285; A9270; J0696; J3475; J3490; J7030; J7050; J7120